=== PATIENT | male | born 1980 | race Caucasian/White ===

== ENCOUNTER → 2016-05-22 | Day surgery (SDC) | payer BC ==
[~2016-05-22] MED LIST: ANEXSIA 7.5/3251 TA1 PO; BENADRYL25 M1 PO; CIPRO PO; FLAGYL PO; FLEXERIL10 MG PO; FLOMAX0.4 M1 PO; HYDROCODON-ACE1 EAC1 PO; IBUPROFEN600 MG PO; MEDROL4 MG/DOSE- PO; MOBIC15 MG PO; PHENERGAN25 MG PO; VICODIN PO; VOLTAREN75 MG PO
--- NOTE | ~2016-05-22 | OR ---
Unit #: [id number] #: [id number] Patient: EUSEBIO MARTIN [id number] [address] [place], [place] [address] [id number] MR#: [id number] NAME: EUSEBIO MARTIN ROOM: Date of Procedure: 05/22/2016 Admission Date: 05/22/2016 Surgeon: Marin Cordero M.D. : 1980 Attending Physician: Marin Cordero M.D. Primary Care Physician: Jaiden Whitley M.D. OPERATIVE REPORT PREOPERATIVE DIAGNOSES 1. Herniated nucleus pulposus. 2. Back pain. 3. Radiculopathy. POSTOPERATIVE DIAGNOSES 1. Herniated nucleus pulposus. 2. Back pain. 3. Radiculopathy. PROCEDURE PERFORMED Lumbar epidural steroid injection with intravenous sedation and fluoroscopic guidance for needle localization. INDICATIONS FOR PROCEDURE The patient is 36-year-old male, who returned with back greater than left lower extremity pain. 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 He has done very well with epidural steroids last year and after injections, he did well for almost nine months. Two injections done in March, which initially helped significantly, but not quite well as he usually has done. The pain actually then returned for its baseline much more rapidly than usually. He has been more physically active at work. Based on a good response, he has had his pathology, symptomatology, and options, we are going to proceed with a repeat injection today. If this is not settled down adequately, we may look at getting a repeat MRI of his lumbar spine. DESCRIPTION OF PROCEDURE The patient was placed in a seated position. Standard monitors were applied. 2 mg of Versed were given for sedation and anxiolysis, which were adequate. Vital signs remained stable. Sterile prep and drape then of the lumbar area was performed. The skin then at the L5-S1 level was localized with 1% lidocaine. An 18-gauge YUPPTV needle was then advanced via loss of resistance technique and fluoroscopic guidance in towards the epidural space. The patient did not complain of pain or paresthesia during needle advancement. After confirming proper positioning with fluoroscopy and radiographic contrast, 80 mg of Depo-Medrol and 4 mL of 0.125% bupivacaine were deposited. The patient tolerated the procedure otherwise well and was discharged to the recovery room in stable condition. Unit #: [id number] #: [id number] Patient: EUSEBIO MARTIN [place] Dictated by... Kaylynn Farley/ezequiel TD: 05/22/2016 23:18 JOB #: [id number] OPERATIVE REPORT Page 1 of 1 X Marin Cordero MD X PROCEDURE OPERATIVE NOTE
== END | disposition home or self-care (01) ==
LOC: CCSC 07:09
DX: M51.17 Intervertebral disc disorders with radiculopathy, lumbosacral region (principal)
CPT/HCPCS: J1040; J2250